=== PATIENT | female | born 1965 | race Caucasian/White ===

== ENCOUNTER 2020-08-26 20:33 | Emergency (ER) | payer SELFPAY ==
[~2020-08-26] VITALS: Ht 172.7 cm; Wt 98.0 kg
[2020-08-26] MEDS ORDERED: ONDANSETRON ODT 4 MG TAB PO ONE (21:30)
[2020-08-26] MEDS ORDERED: HYDROcodone-ACET 10/325MG TAB PO ONE (21:30)
[2020-08-27 04:07] VITALS: BP 174/66
== END 2020-08-27 04:11 | disposition home or self-care (01) ==
LOC: ER 20:35
DX: S93.401A Sprain of unspecified ligament of right ankle, initial encounter (principal); M76.61 Achilles tendinitis, right leg; Z88.6 Allergy status to analgesic agent; X58.XXXA Exposure to other specified factors, initial encounter; Y93.89 Activity, other specified; Y92.89 Other specified places as the place of occurrence of the external cause; Y99.8 Other external cause status
CPT/HCPCS: 73610; 73630; 99284; Q0162